=== PATIENT | male | born 1990 | race Caucasian/White ===

== ENCOUNTER 2018-09-02 07:51 | Emergency (ER) | payer OTHER ==
[~2018-09-02] VITALS: Ht 175.3 cm; Wt 72.6 kg
[2018-09-02 07:57] VITALS: Ht 175.3 cm; Wt 72.6 kg
[2018-09-02 09:54] VITALS: BP 117/73
== END 2018-09-02 09:54 | disposition home or self-care (01) ==
LOC: ED 07:51
DX: K59.00 Constipation, unspecified (principal); F41.9 Anxiety disorder, unspecified; Z88.1 Allergy status to other antibiotic agents
CPT/HCPCS: J1885